=== PATIENT | male | born 1995 | race Caucasian/White ===

== ENCOUNTER 2020-08-30 07:59 | Day surgery (SDC) | payer BC ==
[2020-08-30] MEDS ORDERED: Sodium Chloride 0.9% 10 ML Syringe FLUSH PRN (08:00)
[2020-08-30] MEDS ORDERED: Bupivacaine 0.5%/EPINEPHrine 1:200,000 30 ML SDV ONE ×2 (08:14→09:46)
[2020-08-30] MEDS ORDERED: Methylene Blue 50 MG/10 ML Ampule ONE (08:14)
[2020-08-30] MEDS: Lactated Ringers 1,000 ML IV SCH (08:16)
[2020-08-30] MEDS ORDERED: Propofol 200 MG/20 ML SDV ONE (08:17)
[2020-08-30] MEDS ORDERED: fentaNYL 100 MCG/2 ML SDV ONE (08:17)
[2020-08-30] MEDS ORDERED: Midazolam 1 MG/ML 2 ML SDV ONE (08:17)
[2020-08-30] MEDS ORDERED: Ketamine 200 MG/20 ML MDV ONE (08:27)
[2020-08-30] MEDS ORDERED: ceFAZolin 1 GM Vial ONE (09:20)
[2020-08-30] MEDS ORDERED: Ketamine 200 MG/20 ML MDV IV ONE (09:30)
[2020-08-30] MEDS ORDERED: Glycopyrrolate 0.2 MG/ML SDV IVPUSH ONE (09:30)
[2020-08-30] MEDS ORDERED: Ondansetron 4 MG/2 ML SDV IV ONE (09:30)
[2020-08-30] MEDS: Bupivacaine 0.5%/EPINEPHrine 1:200,000 30 ML SDV INFILT ONE (09:35)
--- NOTE | 2020-08-30 10:45 | PCM.OPNOTE ---
- General Post-Op/Procedure Note Date of Surgery/Procedure: 08/30/20 Operative Procedure(s): Pilonidal Cystectomy Findings: Pilonidal cyst in midline of gluteal cleft Pre Op Diagnosis: Pilonidal Cyst Post-Op Diagnosis: Same Anesthesia Technique: Local, MAC Primary Surgeon: John Hyatt Pathology: Pilonidal cyst EBL in mLs: 20 Complications: None Condition: Good Free Text/Narrative:: Intake & Output 08/29/20 08/30/20 08/30/20 22:59 06:59 14:59 Intake Total 1360 Balance 1360
--- NOTE | 2020-08-30 19:01 | OR ---
DATE OF SURGERY: 08/30/2020 SURGEON: John Hyatt MD PREOPERATIVE DIAGNOSIS: Pilonidal cyst. POSTOPERATIVE DIAGNOSIS: Pilonidal cyst. OPERATION PERFORMED: Pilonidal cystectomy. INDICATIONS FOR SURGERY: This 25-year-old male has developed a pilonidal cyst in the midline of the gluteal cleft. He has had persistent symptoms for over the last year and comes now for definitive excision of this. FINDINGS: In the gluteal cleft midline, the patient has multiple skin dimples in its midportion, but in the lower aspect of the gluteal cleft, there is an open cavity, approximately 1 cm in size with visible granulation tissue in the base. The underlying tissue is consistent with deep extension of the pilonidal cyst down to the underlying fascia, but did appear to remain in the midline without lateral extension. DESCRIPTION OF PROCEDURE: The patient was taken to the operating room. He was placed in the prone calli-knife position and given intravenous sedation. The gluteal cleft area is shaved of all hair, carefully prepped with Betadine and draped, and the buttocks are taped apart. The area is infiltrated with Marcaine with epinephrine, and then an elliptical incision is made in the skin encompassing all visible skin changes consistent with the pilonidal cyst. This dissection then proceeded down through the subcutaneous tissue being careful to include all abnormal tissue with the specimen. The dissection had to extend down to the underlying fascia along the gluteal cleft and down to the underlying muscle towards the rectum although the muscle was not involved and was carefully preserved during the dissection. With this cautery dissection, all of the abnormal tissue was removed. The wound is then irrigated, and full hemostasis is assured with use of electrocautery. The wound was then packed open with Betadine-soaked gauze and sterile dressing applied. The patient is then taken from the operating room in satisfactory condition. ESTIMATED BLOOD LOSS: 20 mL. COMPLICATIONS: None. PROGNOSIS: Good. /[id number]/MODL MTDD
== END 2020-08-30 11:20 | disposition home or self-care (01) ==
LOC: KA.SDS 07:59
PROVIDERS: ATTEND Surgery
DX: L05.91 Pilonidal cyst without abscess (principal); K60.2 Anal fissure, unspecified; Z79.899 Other long term (current) drug therapy
CPT/HCPCS: 00902; J0690; J2250; J2405; J2704; J3010; J3490; J7120